=== PATIENT | female | born 1970 | race Caucasian/White ===

== ENCOUNTER 2021-02-13 17:33 | Emergency (ER) | payer OTHER, SELFPAY ==
[2021-02-13] VITALS (9 sets, daily range): BP systolic 106–126; BP diastolic 67–82; PULSE 78–95; RESP 16; TEMP 36.7; O2SAT 97–100
--- NOTE | ~2021-02-13 | XR_ITS ---
EXAMINATION: XR shoulder LT min 2V EXAM DATE: 02/13/2021 17:58 INDICATION: Left shoulder pain, radiating down left arm. TECHNIQUE: The following left shoulder projections obtained: frontal projection with internal rotatio n, frontal projection with external rotation, Grashey, and scapular Y view (4+ views). There is no p rior study for comparison. FINDINGS: No evidence of left shoulder rotator cuff calcific tendinosis. Unremarkable left glenoh umeral and acromioclavicular joints. There are no acute fractures or dislocations identified. There is no subcutaneous gas. The soft tissue is unremarkable. There are no radiopaque foreign bodies. IMPRESSION: 1. Unremarkable left shoulder exam. Reviewed, dictated and finalized at location A.
--- NOTE | 2021-02-13 19:37 | ED.EXTPRO ---
HPI - Extremity Problem General Chief complaint: Extremity Problem,Nontraumatic Stated complaint: shoulder injury Time Seen by Provider: 02/13/21 19:11 Source: patient Mode of arrival: ambulatory Limitations: no limitations History of Present Illness HPI Narrative: This is a 50-year-old female that presents the emergency department for left shoulder pain present over the last couple of weeks. No known injury or trauma. The pain is worse with movement and relieved with rest. She is unable to lift the shoulder above 90 degrees without pain. She has been taking Aleve with little relief. Denies fever, erythema, edema, or numbness. Related Data Allergies Allergy/AdvReac Type Severity Reaction Status Date / Time No Known Allergies Allergy Verified 02/13/21 19:04 Review of Systems Review of Systems: Narrative: CONSTITUTIONAL: Denies fever SKIN: Denies rash MUSCULOSKELETAL: Reports joint pain, and myalgia. NEUROLOGIC: Denies numbness, or weakness. All systems reviewed & are unremarkable except as noted in HPI and below PMFSH Past Medical History Medical History (Updated 02/13/21 @ 19:43 by Shila Delgado PA-C) No active medical problems Social History Social History (Updated 02/13/21 @ 19:38 by Shila Delgado PA-C) Smoking status: Never smoker Exam Narrative: Exam Narrative: GENERAL: Well-appearing, well-nourished, and in no acute distress. HEAD: Normocephalic, atraumatic. EYES: EOMI. CHEST: Clear to auscultation. No respiratory distress. No wheezes rales or rhonchi HEART: Regular rate and rhythm. No murmur heard. Normal peripheral pulses. EXTREMITIES: Normal range of motion. No edema, erythema or obvious deformity. Strength equal in bilateral upper extremities (5/5). Normal sensation. Normal radial pulses. Pain with Novoa-Ryan test SKIN: Warm, dry, no rash. NEURO: No focal deficits. Alert and oriented x3. PSYCH: Normal mood and affect Course Vital Signs Vital signs: Vital Signs Temperature 98.1 F 02/13/21 17:45 Pulse Rate 95 02/13/21 17:45 Respiratory Rate 16 02/13/21 17:45 Blood Pressure 126/74 02/13/21 17:45 Pulse Oximetry 100 02/13/21 17:45 Temperature 98.1 F 02/13/21 17:45 Pulse Rate 81 02/13/21 18:58 Respiratory Rate 16 02/13/21 18:58 Blood Pressure 115/77 02/13/21 18:58 Pulse Oximetry 97 02/13/21 18:58 MDM - Extremity (Nontraumatic) MDM Narrative Medical decision making narrative: Patient presents the emergency department for left shoulder pain noted over the last couple of weeks. No recent injury or trauma. Left shoulder x-rays without acute osseous abnormalities. She does have pain with Novoa Ryan test. Patient is neurovascularly intact. Instructed to continue [id number] pain medication as needed. Will be given orthopedics for follow-up. She was given warnings to return to the ER Imaging Data Radiologist's impression: ITS Impressions Shoulder X-Ray 02/13/21 18:09 IMPRESSION: 1. Unremarkable left shoulder exam. Critical Care Time Critical Care Time Critical Care Time: No Discharge Plan Discharge Clinical Impression: Impingement syndrome of left shoulder region Patient Disposition: Home, Self-Care Condition: Stable Instructions: Shoulder Pain (ED) Additional Instructions: Return to the ER if you experience fever, redness and swelling of your arm, weakness, numbness, or any other symptoms that are concerning to you Rest, use ice/heat, take anti-inflammatories (Aleve, Ibuprofen, Naproxen, etc) or Tylenol as needed for pain as well as muscle relaxer (Flexeril) as needed for pain. Muscle relaxers can make you drowsy, do not drive if you take this Follow up with orthopedics for further care Prescriptions: New cyclobenzaprine 10 mg tablet 10 mg PO HS PRN (Reason: muscle spasm) Qty: 10 RF: 0 Follow-up/Referrals: PHYSICIAN,INFORMATION TECHNOLOGY MANAGER [Primary Care Provider] - Stiven Vila MD [Physician] -
[2021-02-13] MEDS: KETOROLAC (*BKC) 60 MG/2 ML VIAL IM (19:49)
== END 2021-02-13 20:21 | disposition home or self-care (01) ==
PROVIDERS: Emergency Provider Emergency Medicine
DX: M75.42 Impingement syndrome of left shoulder (principal)
CPT/HCPCS: 73030; 96372; 99283; J1885

== ENCOUNTER 2021-03-21 12:30 | Outpatient (RCR) | payer OTHER, SELFPAY ==
[2021-03-05 12:30] VITALS: BP_SYST 85
--- NOTE | 2021-03-05 14:59 | PTOPEVAL ---
Thank you for referring Judy Carmona to [facility].? The patient is scheduled to be seen for therapy? 2 x/week for 3 weeks. Please review, sign, date and return this plan of care NARENDRA. I agree with and certify that the following plan of care is medically necessary. Referring Physician Date Attending Provider: Stiven Vila MD Diagnosis frozen left shoulder Onset 2 month Additional Evaluation Detail She had been donating plasma from her left UE. Subjective Information She received an injection Query Text:As Reported By Patient/ without relief of symptoms. Family She also received chiro treatments without improvement. She reports left arm pain with reaching motions, lifting, carrying objects. She c/o constant pain of left UE, but severe pain with various movements. She reports significant limited with shoulder motion in all directions. She is limited with yard work due to pain. She works at a desk. She is limited with sleeping due to pain with being on side. Pain Assessment Left Shoulder(s) Reported Pain Level 6 Pain Description Radiating,Sharp Pain Frequency Acute Lowest Pain Intensity 1 Greatest Pain Intensity 10 Pain Aggravating Factors ADL's,Lifting,Prolonged Position Pain Behaviors None Upper Extremity Range of Motion Scapular/ Shoulder Range of Motion Left Scapular: Retraction Hypomobile Scapular: Protraction Hypomobile Scapular Downward Rotation Hypomobile Scapular Upward Rotation Hypomobile Shoulder Flexion - Active 90 Shoulder Flexion - Passive 140 Shoulder Extension - Active 40 Shoulder Abduction - Active 64 Shoulder Abduction - Passive 85 Shoulder Medial Rotation - Passive 20 Shoulder Medial Rotation - Active iliac crest:Reach Behind the Back Shoulder Lateral Rotation - Active 25 Shoulder Lateral Rotation - Active back of head:Reach Behind the Head Scapular/Shoulder Range of Motion Muscle Length Restriction,Pain Limitations ,Soft Tissue Restriction Scapular/Shoulder Range of Motion rotation measured in supine Comments with GH joint abd 60 dg poor inferior GH movement, decreased scapulothoracic
[2021-03-21 12:33] VITALS: BP_SYST 105
--- NOTE | 2021-03-21 13:32 | PTOPEVAL ---
Physical therapy progress note Thank you for referring Judy Carmona to [facility].? Judy has received 5 therapy visits to address shoulder limitations. See summary below for noted progress and restrictions. Limited progress towards goals. Will hold therapy until f/u with MD and new orders received. Please review, sign, date and return this plan of care NARENDRA. I agree with and certify that the following plan of care is medically necessary. Referring Physician Date Attending Provider: Stiven Vila MD Problem Diagnosis frozen left shoulder Onset 2 month Additional Evaluation Detail She had been donating plasma from her left UE. Subjective Information She reports continued Query Text:As Reported By Patient/ limiations with left UE Family reaching motions, lifting, carrying objects. She c/o constant pain of left UE, but severe pain with various movements. She reports significant limited with shoulder motion in all directions. She is limited with yard work due to pain. She works at a desk. She is limited with sleeping due to pain with being on side. Pain Assessment Self Report Pain Assessment Left Shoulder(s) Reported Pain Level 0 Pain Description Sharp,Throbbing Lowest Pain Intensity 0 Greatest Pain Intensity 9 Upper Extremity Range of Motion Scapular/ Shoulder Range of Motion Left Scapular: Retraction Hypomobile Scapular: Protraction Hypomobile Scapular Downward Rotation Hypomobile Scapular Upward Rotation Hypomobile Shoulder Flexion - Active 102 Shoulder Flexion - Passive 140 Shoulder Extension - Active 32 Shoulder Abduction - Active 65 Shoulder Abduction - Passive 105 Shoulder Medial Rotation - Passive 20 Shoulder Medial Rotation - Active iliac crest:Reach Behind the Back Shoulder Lateral Rotation - Active 20 Shoulder Lateral Rotation - Active side of head:Reach Behind the Head Scapular/Shoulder Range of Motion Muscle Length Restriction,Pain Limitations ,Soft Tissue Restriction Scapular/Shoulder Range of Motion rotation measured in supine Comments with GH joint abd 60 dg poor inferior GH movement, decreased scapulothoracic movement significant posterior capsule restrictions Upper Extremity Muscle Strength Testing Scapular/Sh
--- NOTE | 2021-04-17 11:31 | PCPTNOTE ---
Admitting Provider: Attending Provider: Stiven Vila MD Patient:Judy Carmona Date of :1970 Discharge Note Patient has not returned for any further treatments since 03/21/2021, therefore she will be discharged at this time. Patient?s initial visit was on 03/05/2021 12:30 and she had a total of 5 visits. The goals have been partially met. Thank you for referring this patient to [facility]. Please review, sign, date and return this discharge summary NARENDRA. I have been updated about the patient's current status and I agree with discharge from the above service at this time. Referring Physician Date
== END 2021-04-18 08:55 | disposition home or self-care (01) ==
LOC: ANHPT 12:30
PROVIDERS: Visit Provider Orthopaedic Surgery
DX: M75.02 Adhesive capsulitis of left shoulder (principal)
CPT/HCPCS: 97014; 97110; 97140; 97161; G0283